=== PATIENT | female | born 2005 | race Two or more races ===

== ENCOUNTER 2025-04-14 13:49 | Outpatient (CLI) | payer OTHER | END 2025-04-14 13:58 | disposition home or self-care (01) | LOC: PRENATAL 13:49 | PROVIDERS: ATTEND Obstetrics & Gynecology Maternal & Fetal Medicine | DX: O44.00 Complete placenta previa NOS or without hemorrhage, unspecified trimester (principal); O99.019 Anemia complicating pregnancy, unspecified trimester; Z3A.28 28 weeks gestation of pregnancy ==

== ENCOUNTER 2025-05-05 08:49 | Outpatient (CLI) | payer OTHER | END 2025-05-05 08:50 | disposition home or self-care (01) | LOC: PRENATAL 08:49 | PROVIDERS: ATTEND Obstetrics & Gynecology Maternal & Fetal Medicine | DX: O26.849 Uterine size-date discrepancy, unspecified trimester (principal); O36.8130 Decreased fetal movements, third trimester, not applicable or unspecified; O99.019 Anemia complicating pregnancy, unspecified trimester; Z3A.31 31 weeks gestation of pregnancy ==

== ENCOUNTER → 2025-06-03 12:42 | Outpatient (CLI) | payer OTHER ==
[~2025-06-03 12:42] MED LIST: FOLIC ACID0.8 M1; IRON236 MG PO; PRENATA CHEWAB1 EACH PO
== END | disposition home or self-care (01) ==
LOC: PRENATAL 12:42
PROVIDERS: ATTEND Obstetrics & Gynecology Maternal & Fetal Medicine
DX: O26.843 Uterine size-date discrepancy, third trimester (principal); O36.8130 Decreased fetal movements, third trimester, not applicable or unspecified; O99.013 Anemia complicating pregnancy, third trimester; Z3A.33 33 weeks gestation of pregnancy

== ENCOUNTER 2025-06-08 10:27 | Outpatient (CLI) | payer OTHER ==
[~2025-06-08] VITALS: Ht 154.9 cm; Wt 54.0 kg
[2025-06-08 09:49] VITALS: BP 96/68
[2025-06-08 10:10] VITALS: BP 96/68
[2025-06-08] MEDS ORDERED: RINGERS SOLUTION,LACTATED 1,000 ML IV SCH (10:45)
[2025-06-08] MEDS ORDERED: FOLIC ACID0.8 M1 (10:50)
[2025-06-08] MEDS ORDERED: IRON236 MG PO (10:50)
[2025-06-08] MEDS ORDERED: PRENATA CHEWAB1 EACH PO (10:50)
[2025-06-08 10:56] LABS: URINE APPEARANCE Clear; URINE BILIRRUBIN Negative (NEGATIVE); URINE BLOOD Negative; URINE COLOR Yellow; URINE GLUCOSE Negative (NEGATIVE); URINE KETONE Negative (NEGATIVE); URINE LEUKOCYTE Trace; URINE NITRATE Negative; URINE PROTEIN Negative (NEGATIVE); URINE UROBILINOGEN 0.2 E.U./dl
[2025-06-08 10:58] LABS: BASO % 0.4 % (0.1-1.2); EOS # 0.53 (0.04-0.54); EOS % 3.9 % (0.7-7.0); LYMPH # 1.42 (1.18-3.74); LYMPH % 10.6 % (19.3-53.1); MEAN PLATELET VOLUME 10.70 fl (9.4-12.4); MONO # 0.82 (0.24-0.82); MONO % 6.1 % (4.7-12.5); NEUT # 10.55 (1.56-6.13); NEUT % 78.6 % (34.0-71.1); RED CELL DISTRIBUTION WIDTH 13.8 % (11.6-14.4)
[2025-06-08 10:59] LABS: URINE BACTERIA 136.7 uL (0.0-1933); URINE EPITHELIAL CELLS 9.2 uL (0.0-38.8); URINE WBC 23.2 uL (0.0-23.2)
[2025-06-08 11:51] LABS: URINE CAST 0.00 uL (0.0-1.40); URINE RBC 0.7 uL (0.0-20.8)
[2025-06-08 15:09] VITALS: BP 95/61
[2025-06-08 18:00] VITALS: BP 100/60
[2025-06-08] MEDS ORDERED: MORPHINE SULFATE 4 MG/ML CARTRIDGE IV ONE (18:30)
[2025-06-08 23:20] VITALS: BP 96/61
[2025-06-09 03:37] VITALS: BP 98/62
[2025-06-09] MEDS ORDERED: MORPHINE SULFATE 4 MG/ML CARTRIDGE IV ONE (05:00)
[2025-06-09 07:19] VITALS: BP 90/75
[2025-06-09 08:51] VITALS: BP 90/52
== END 2025-06-09 08:53 | disposition home or self-care (01) ==
LOC: OBS/DEL 10:27
PROVIDERS: Obstetrics & Gynecology; ATTEND Obstetrics & Gynecology
DX: O47.1 False labor at or after 37 completed weeks of gestation (principal); Z3A.37 37 weeks gestation of pregnancy

== ENCOUNTER 2025-06-10 10:52 | Inpatient (IN) | payer OTHER ==
[2025-06-10] VITALS (8 sets, daily range): BP systolic 93–114; BP diastolic 55–75
[~2025-06-10] VITALS: Ht 154.9 cm; Wt 55.3 kg
[2025-06-10] MEDS ORDERED: OXYTOCIN 20 UNITS/500ML RL PIGGYBAG IV ONE (11:42)
[2025-06-10 11:54] LABS: BASO % 0.4 % (0.1-1.2); EOS # 0.45 (0.04-0.54); EOS % 6.2 % (0.7-7.0); LYMPH # 1.11 (1.18-3.74); LYMPH % 15.2 % (19.3-53.1); MEAN PLATELET VOLUME 10.90 fl (9.4-12.4); MONO # 0.58 (0.24-0.82); MONO % 8.0 % (4.7-12.5); NEUT # 5.08 (1.56-6.13); NEUT % 69.8 % (34.0-71.1); RED CELL DISTRIBUTION WIDTH 14.0 % (11.6-14.4); URINE APPEARANCE Turbid; URINE BILIRRUBIN Negative (NEGATIVE); URINE BLOOD Negative; URINE COLOR Dark Yellow; URINE GLUCOSE Negative (NEGATIVE); URINE KETONE Trace (NEGATIVE); URINE LEUKOCYTE Trace; URINE NITRATE Negative; URINE PROTEIN Trace (NEGATIVE); URINE UROBILINOGEN 1.0 E.U./dl
[2025-06-10 11:58] LABS: URINE EPITHELIAL CELLS 69.5 uL (0.0-38.8); URINE RBC 3.0 uL (0.0-20.8); URINE WBC 29.0 uL (0.0-23.2)
[2025-06-10 11:59] LABS: URINE CAST 0.29 uL (0.0-1.40)
[2025-06-10 12:20] LABS: INR < 0.93
[2025-06-10] MEDS ORDERED: OXYTOCIN 1,000 ML IV SCH (12:45)
[2025-06-10] MEDS ORDERED: MORPHINE SULFATE 4 MG/ML VIAL IV ONE (13:00)
[2025-06-10] MEDS ORDERED: LIDOCAINE HCL 1% 10ML VIAL ONE (18:18)
[2025-06-10] MEDS ORDERED: CHLORHEXIDINE GLUCONATE 120 ML BOTTLE TOP ONE ×2 (18:18→20:00)
[2025-06-10] MEDS ORDERED: ERYTHROMYCIN BASE OPHT 1GM EACH TUBE OP ONE ×2 (18:18→20:00)
[2025-06-10] MEDS ORDERED: OXYTOCIN 20 UNITS/1000ML RL PIGGYBAG IV ONE (18:18)
[2025-06-10] MEDS ORDERED: LIDOCAINE HCL 1% 10ML VIAL PERCUT ONE (20:00)
[2025-06-10] MEDS ORDERED: OXYTOCIN 1,000 ML IV ONE (20:15)
[2025-06-11 00:54] VITALS: BP 94/60
[2025-06-11 03:00] VITALS: BP 105/69
[2025-06-11 06:53] LABS: BASO % 0.3 % (0.1-1.2); EOS # 0.29 (0.04-0.54); EOS % 1.8 % (0.7-7.0); LYMPH # 1.66 (1.18-3.74); LYMPH % 10.3 % (19.3-53.1); MEAN PLATELET VOLUME 11.30 fl (9.4-12.4); MONO # 1.53 (0.24-0.82); MONO % 9.5 % (4.7-12.5); NEUT # 12.51 (1.56-6.13); NEUT % 77.5 % (34.0-71.1); RED CELL DISTRIBUTION WIDTH 13.7 % (11.6-14.4)
[2025-06-11 08:00] VITALS: BP 96/64
[2025-06-11] MEDS ORDERED: PNV,CALCIUM 72/IRON/FOLIC ACID 1 TAB TABLET PO SCH (09:00)
[2025-06-11 16:00] VITALS: BP 103/73
[2025-06-12 01:39] VITALS: BP 102/70
[2025-06-12 03:00] VITALS: BP 103/67
[2025-06-12 08:00] VITALS: BP 102/71
== END 2025-06-12 13:20 | disposition home or self-care (01) | DRG 807 ==
LOC: OB/GYN 10:52 → LDR 10:52 → OB/GYN 20:01
PROVIDERS: ADMIT Obstetrics & Gynecology; ATTEND Obstetrics & Gynecology
PROC: 10E0XZZ Delivery of Products of Conception, External Approach (ICD-10-PCS; principal; 2025-06-10)
PROC: 0KQM0ZZ Repair Perineum Muscle, Open Approach (ICD-10-PCS; 2025-06-10)
PROC: 4A1HXCZ Monitoring of Products of Conception, Cardiac Rate, External Approach (ICD-10-PCS; 2025-06-10)
DX: O70.1 Second degree perineal laceration during delivery (principal); Z37.0 Single live birth; O36.5930 Maternal care for other known or suspected poor fetal growth, third trimester, not applicable or unspecified; Z3A.37 37 weeks gestation of pregnancy